=== PATIENT | male | born 1970 | race African-American/Black ===

== ENCOUNTER 2019-01-26 00:20 | Emergency (ER) | payer MEDICAID ==
[2019-01-26] MEDS ORDERED: Bisacodyl SUPP* 10 MG SUPP PR ONE (01:04)
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
[2019-01-26 05:27] VITALS: BP 93/54
== END 2019-01-26 05:27 | disposition home or self-care (01) ==
LOC: ED 00:20
DX: K59.00 Constipation, unspecified (principal); L89.152 Pressure ulcer of sacral region, stage 2; G82.54 Quadriplegia, C5-C7 incomplete; F17.210 Nicotine dependence, cigarettes, uncomplicated; Z79.899 Other long term (current) drug therapy; Z99.3 Dependence on wheelchair
CPT/HCPCS: 99283; A9270-GY

== ENCOUNTER 2019-02-03 13:28 | Inpatient (IN) | payer MEDICAID ==
[2019-02-03 15:56] LABS: ABS Eosinophils 0.1 10^3/ul (0-0.6); ABS Lymphocytes 1.2 10^3/ul (1.0-4.8); ABS Monocytes 0.4 10^3/ul (0-0.8); ABS Neutrophils 2.2 10^3/ul (1.5-7.7); Eosinophil % 1.7 %; Hematocrit 40 % (42-52); Hemoglobin 13.3 g/dL (14.0-18.0); Lymphocyte % 31.4 %; Mean Corpuscular HGB Conc 34 g/dL (31-36); Mean Corpuscular Hemoglobin 31 pg (27-31); Mean Corpuscular Volume 93 fL (80-94); Mean Platelet Volume 7.5 fL (7.4-10.4); Nucleated Red Blood Cells % 0.1; Platelet Count 179 10^3/uL (150-450); Red Blood Count 4.25 10^6 /uL (4.18-5.48); Red Cell Distribution Width 14 % (10-15); White Blood Count 3.9 10^3/uL (3.5-10.8)
[2019-02-03 16:14] LABS: Urine Appearance Cloudy; Urine Bilirubin Negative (Negative); Urine Blood Negative (Negative); Urine Color Yellow; Urine Glucose Negative (Negative); Urine Ketones 1+ (Negative); Urine Nitrite Negative (Negative); Urine Protein Negative (Negative); Urine Specific Gravity 1.015 (1.010-1.030); Urine Urobilinogen Negative (Negative)
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
[2019-02-03 16:35] LABS: Albumin 3.1 g/dL (3.2-5.2); Albumin/Globulin Ratio 0.9 (1-3); BUN/Creatinine Ratio 16.9 (8-20); C Reactive Protein 10.4 mg/L (<8.01); Calcium 8.2 mg/dL (8.6-10.3); EGFR African American 177.4 (>60); EGFR Non-African American 146.6 (>60); Globulin 3.3 g/dL (2-4); Potassium 3.7 mmol/L (3.5-5.0); Total Bilirubin 0.5 mg/dL (0.2-1.0); Total Protein 6.4 g/dL (6.4-8.9)
[2019-02-03 16:57] LABS: HIV 4th Generation Negative (Negative)
[2019-02-03] MEDS ORDERED: Senna TAB 8.6 mg* TAB PO PRN (18:03)
[2019-02-03] MEDS ORDERED: Polyethylene Glycol 3350* 17 GM PACKET PO PRN (18:03)
[2019-02-03] MEDS ORDERED: Magnesium Hydroxide LIQ* 30 ML UDC PO PRN (18:03)
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
[2019-02-03] MEDS: NS 0.9% 1000 ML** 1,000 ML IV SCH (22:00)
[2019-02-03] MEDS: Gabapentin CAP(*) 300 MG PO SCH (22:05)
[2019-02-03] MEDS: Baclofen TAB* 20 MG PO SCH (22:05)
[2019-02-03] MEDS: Docusate CAP* 100 MG PO SCH (22:05)
[2019-02-03] MEDS: Magnesium Hydroxide LIQ* 30 ML UDC PO SCH (22:06)
[2019-02-03] MEDS: Enoxaparin(*) 40 MG/0.4 ML SYR SUBCUT SCH (22:10)
[2019-02-03] MEDS: Bisacodyl SUPP* 10 MG SUPP PR PRN (23:17)
[2019-02-04] MEDS: Magnesium Hydroxide LIQ* 30 ML UDC PO SCH ×3 (01:27→19:43)
[2019-02-04] MEDS: NS 0.9% 1000 ML** 1,000 ML IV SCH ×2 (04:53→21:54)
[2019-02-04] MEDS: Gabapentin CAP(*) 300 MG PO SCH ×3 (06:59→19:40)
[2019-02-04] MEDS: Baclofen TAB* 20 MG PO SCH ×4 (07:00→19:40)
[2019-02-04] MEDS: Bisacodyl SUPP* 10 MG SUPP PR PRN (10:03)
[2019-02-04] MEDS: Acetaminophen TAB* 325 MG PO PRN ×2 (10:13→18:30)
[2019-02-04] MEDS: Docusate CAP* 100 MG PO SCH ×2 (10:15→19:37)
[2019-02-04] MEDS: NIACIN 2000 MG PO SCH (10:15)
--- NOTE | 2019-02-04 16:55 | CONSULT ---
Subjective Date of Service: 02/04/19 Interval History: Mr. Gore is a 49 yo male with PMH significant for quadriplegia and chronic pain ; who presented to the emergency room with complains of constipation and wounds to his buttocks. Mr. Gore reports that he has had ulcers to his buttocks intermittently. He is unsure how long the current ones have been present but thinks that it has been months and feels that they are worse over the past few weeks. He was used duoderm in the past on wounds. Patient seen and examined at bedside. Family History: Unchanged from Admission Social History: Unchanged from Admission Past Medical History: Unchanged from Admission Review of Systems - Measurements Intake and Output: Intake and Output Last 24 Hours 02/02/19 02/03/19 02/04/19 02/05/19 06:59 06:59 06:59 06:59 Intake Total 1000 360 Output Total 755 200 Balance 245 160 Weight 124 lb 11.2 oz Intake: IV Fluids 1000 Oral 0 360 Output: Urine 755 200 Other: Estimated Void Medium Date of Last Bowel 02/04/19 Movement # Bowel Movements 0 # Voids 1 - Review of Systems Constitutional Symptoms: Negative: Fever, Other - Chills Dermatology: Positive: Other - Open wound to buttocks Objective Active Medications: Acetaminophen (Tylenol Tab*) 650 mg PO Q4H PRN Reason: Pain- mild Baclofen (Lioresal Tab*) 20 mg PO QID MARYBEL Bisacodyl (Dulcolax Supp*) 10 mg OK DAILY PRN Reason: CONSTIPATION Docusate Sodium (Colace Cap*) 100 mg PO BID MARYBEL Enoxaparin Sodium (Lovenox(*)) 40 mg SUBCUT Q24H MARYBEL Gabapentin (Neurontin Cap(*)) 900 mg PO TID MARYBEL Sodium Chloride (Ns 0.9% 1000 Ml) 1,000 mls @ 125 mls/hr IV PER RATE MARYBEL Magnesium Hydroxide (Milk Of Magnesia Liq*) 30 ml PO BID MARYBEL Magnesium Hydroxide (Milk Of Magnesia Liq*) 30 ml PO BID PRN Reason: CONSTIPATION Nf* (Niacin 2,000 Mg ()) 2,000 mg PO DAILY MARYBEL Polyethylene Glycol/Electrolytes (Miralax*) 17 gm PO DAILY PRN Reason: CONSTIPATION Senna (Senokot 8.6 Mg Tab*) 1 tab PO BEDTIME PRN Reason: CONSTIPATION Vital Signs - 8 hr 02/04/19 02/04/19 02/04/19 08:59 11:15 13:40 Temperature 98.1 F Pulse Rate 75 Respiratory 16 16 16 Rate Blood Pressure 84/51 (mmHg) O2 Sat by Pulse 100 Oximetry Oxygen Devices in Use Now: None Appearance: NAD, laying in bed Ears/Nose/Mouth/Throat: Mucous Membranes Moist Respiratory: Symmetrical Chest Expansion and Respiratory Effort Skin: - - See skin note below Neurological: Alert and Oriented x 3 Nutrition: Taking PO's Result Diagrams: 02/03/19 15:40 02/03/19 15:34 Skin Deviation Note - Skin Deviation Findings Buttocks - There are superficial open areas bilateral. The area on the left lower sacrum measures, 0.5 cm x 3 cm x 0.1 cm and the area on the right lower sacrum measures, 0.7 cm x 1.5 cm x 0.1 cm. The wound bases are red granulation tissue and area surrounded by pink scar tissue. There is no drainage noted. There is an area right of midline in the upper sacrum that measures 3.8 cm x 3 cm that is dark purplish discoloration that is slightly blanchable. Wound Problem/Plan Mr. Gore is a 49 yo male with PMH significant for quadriplegia and chronic pain ; who presented to the emergency room with complains of constipation and wounds to his buttocks. Mr. Gore reports that he has had ulcers to his buttocks intermittently. He is unsure how long the current ones have been present but thinks that it has been months and feels that they are worse over the past few weeks. 1. Bilateral sacrum stage 2 pressure injuries. Recommend applying barrier cream (orange top) as needed to the buttocks. Frequent turning and repositioning. Consider checking a prealbumin level to evaluate nutritional status. Should use a pressure relieving cushion in his wheelchair. 2. Sacral deep tissue injury vs stage 1 pressure injury. See above. 3. Quadriplegia. 4. Diet. Regular diet. 5. Code Status. Full Code Status. Is Patient a Wound Clinic Patient: No Status and Disposition: Inpatient. Disposition per primary medicine team. Counseling and/or Coordination of Care Minutes: 20 Points of Discussion: TIME SPENT: Time for this wound consultation was 20 minutes and 10 minutes was spent with the patient discussing past medical history; assessing, measuring, and photographing the wounds; and repositioning the patient. Attending: Jaimie Burns
[2019-02-04] MEDS: Enoxaparin(*) 40 MG/0.4 ML SYR SUBCUT SCH (18:26)
--- NOTE | 2019-02-04 19:40 | PN ---
Subjective Date of Service: 02/04/19 Interval History: Pt states he is feeling better today. He had a BM today and reports decreased abd pain and distention. He still has soreness at coccyx, but notes that it is improved. He has no other complaints today. Family History: Unchanged from Admission Social History: Unchanged from Admission Past Medical History: Unchanged from Admission Objective Active Medications: Acetaminophen (Tylenol Tab*) 650 mg PO Q4H PRN Baclofen (Lioresal Tab*) 20 mg PO QID [facility] Bisacodyl (Dulcolax Supp*) 10 mg WA DAILY PRN Docusate Sodium (Colace Cap*) 100 mg PO BID [facility] Enoxaparin Sodium (Lovenox(*)) 40 mg SUBCUT Q24H [facility] Gabapentin (Neurontin Cap(*)) 900 mg PO TID [facility] Sodium Chloride (Ns 0.9% 1000 Ml) 1,000 mls @ 125 mls/hr IV PER RATE [facility] Magnesium Hydroxide (Milk Of Magnesia Liq*) 30 ml PO BID [facility] Magnesium Hydroxide (Milk Of Magnesia Liq*) 30 ml PO BID PRN Nf* (Niacin 2,000 Mg ()) 2,000 mg PO DAILY [facility] Polyethylene Glycol/Electrolytes (Miralax*) 17 gm PO DAILY PRN Senna (Senokot 8.6 Mg Tab*) 1 tab PO BEDTIME PRN Vital Signs: Temp Pulse Resp BP Pulse Ox 98.5 F 68 20 81/38 99 02/04/19 15:15 02/04/19 15:15 02/04/19 15:40 02/04/19 15:15 02/04/19 15:15 Oxygen Devices in Use Now: None Appearance: Pt is laying in bed with HOB elevated. He is pleasant, cooperative , appears to be in no acute distress. Eyes: No Scleral Icterus, PERRLA Ears/Nose/Mouth/Throat: NL Teeth, Lips, Gums, Clear Oropharnyx, Mucous Membranes Moist Neck: NL Appearance and Movements; NL JVP, Trachea Midline Respiratory: Symmetrical Chest Expansion and Respiratory Effort, Clear to Auscultation Cardiovascular: NL Sounds; No Murmurs; No JVD, RRR, No Edema Abdominal: NL Sounds; No Tenderness; No Distention, No Hepatosplenomegaly Extremities: No Edema, No Clubbing, Cyanosis Neurological: Alert and Oriented x 3 Result Diagrams: 02/03/19 15:40 02/03/19 15:34 Additional Lab and Data: Lab Results 02/03/19 02/03/19 Range/Units 15:40 15:50 WBC 3.9 (3.5-10.8) 10^3/uL RBC 4.25 (4.18-5.48) 10^6 /uL Hgb 13.3 L (14.0-18.0) g/dL Hct 40 L (42-52) % MCV 93 (80-94) fL MCH 31 (27-31) pg MCHC 34 (31-36) g/dL RDW 14 (10-15) % Plt Count 179 (150-450) 10^3/uL MPV 7.5 (7.4-10.4) fL Neut % (Auto) 55.8 % Lymph % (Auto) 31.4 % [place] % (Auto) 10.3 % Eos % (Auto) 1.7 % Baso % (Auto) 0.8 % Absolute Neuts (auto) 2.2 (1.5-7.7) 10^3/ul Absolute Lymphs (auto) 1.2 (1.0-4.8) 10^3/ul Absolute Monos (auto) 0.4 (0-0.8) 10^3/ul Absolute Eos (auto) 0.1 (0-0.6) 10^3/ul Absolute Basos (auto) 0.0 (0-0.2) 10^3/ul Absolute Nucleated RBC 0.0 10^3/ul Nucleated RBC % 0.1 Urine Color Yellow Urine Appearance Cloudy Urine pH 6.0 (5-9) Ur Specific [place] 1.015 (1.010-1.030) Urine Protein Negative (Negative) Urine Ketones 1+ A (Negative) Urine Blood Negative (Negative) Urine Nitrate Negative (Negative) Urine Bilirubin Negative (Negative) Urine Urobilinogen Negative (Negative) Ur Leukocyte Esterase Negative (Negative) Urine Glucose Negative (Negative) Microbiology and Other Data: Microbiology 02/03/19 Unknown Nasal Screen MRSA (PCR) - Final Nasal Mrsa Not Detected Assess/Plan/Problems-Billing Assessment: 49yom PMHx paraplegia presents with constipation, decubitus ulcers on coccyx. - Patient Problems (1) Psychosocial problem Comment: -Pt lives in [place] and is without electric wheelchair, therefore unable to get around -Wheechair is back home in [place], and is broken -Working with SW to resolve this (2) Decubitus ulcers Comment: -Wound consult ordered; thank you for recommendations -Turn and position; barrier cream -Check prealbumin (3) Constipation Comment: -Resolved -Pt had BM today -Continue bowel regimen as needed (4) DVT prophylaxis Comment: -Lovenox (5) Full code status Status and Disposition: Inpatient. Assisted. Discharge once electric wheelchair resolved.
[2019-02-05] MEDS: NS 0.9% 1000 ML** 1,000 ML IV SCH (07:30)
[2019-02-05 07:57] VITALS: BP 91/48
[2019-02-05] MEDS: Gabapentin CAP(*) 300 MG PO SCH (09:32)
[2019-02-05] MEDS: Baclofen TAB* 20 MG PO SCH (09:32)
[2019-02-05] MEDS: Acetaminophen TAB* 325 MG PO PRN (09:33)
[2019-02-05] MEDS: Magnesium Hydroxide LIQ* 30 ML UDC PO SCH (09:40)
[2019-02-05] MEDS: Docusate CAP* 100 MG PO SCH (09:40)
[2019-02-05] MEDS: NIACIN 2000 MG PO SCH (09:40)
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
== END 2019-02-05 12:45 | disposition home or self-care (01) | DRG 380 ==
LOC: ED 13:28 → MED 17:47 → OBSVTOIN 02-04 11:00
PROVIDERS: ADMIT Internal Medicine; ATTEND Internal Medicine
DX: L89.159 Pressure ulcer of sacral region, unspecified stage (principal); G82.20 Paraplegia, unspecified; Z68.1 Body mass index [BMI] 19.9 or less, adult; K59.00 Constipation, unspecified; R63.6 Underweight; L89.899 Pressure ulcer of other site, unspecified stage; G89.29 Other chronic pain; Z80.9 Family history of malignant neoplasm, unspecified; Z82.49 Family history of ischemic heart disease and other diseases of the circulatory system; Z82.3 Family history of stroke; Z87.891 Personal history of nicotine dependence; Z82.69 Family history of other diseases of the musculoskeletal system and connective tissue
CPT/HCPCS: 36415; 74018; 80053; 81003; 84134; 85025; 86140; 87389; 87641; 99283; A9270-GY; G0378; J1650